=== PATIENT | female | born 1950 | race Caucasian/White ===

== ENCOUNTER 2019-08-04 08:21 | Emergency (ER) | payer MEDICARE, BC ==
[2019-08-04 08:36] VITALS: BP 156/78
--- NOTE | 2019-08-04 08:49 | UC ---
Throat Pain/Nasal Jose HPI - HPI Summary HPI Summary: 68 yo with several days of cough, with progressive sore throat for the past 2 days. Grandchildren recently dx with RSV, and one admitted for treatment of pneumonia. - History of Current Complaint Chief Complaint: UCGeneralIllness Stated Complaint: SORE THROAT EARS COUGH Time Seen by Provider: 08/04/19 08:40 Hx Obtained From: Patient Onset/Duration: Gradual Onset, Lasting Days - 4 Severity: Moderate Pain Intensity: 0 Cough: Nonproductive Associated Signs & Symptoms: Positive: Dysphagia - Epiglottits Risk Factors Epiglottis Risk Factors: Negative - Allergies/Home Medications Allergies/Adverse Reactions: Allergies Allergy/AdvReac Type Severity Reaction Status Date / Time medroxyprogesterone Allergy Nausea And Verified 08/04/19 08:36 [From Provera] Vomiting PMH/Surg Hx/FS Hx/Imm Hx Previously Healthy: Yes Endocrine History: Hypothyroidism, Dyslipidemia - Surgical History Surgical History: Yes Surgery Procedure, Year, and Place: CHOLECYSTECTOMY - Family History Known Family History: Positive: Other - mother of lymphoma, father age 94 - Social History Occupation: Retired Alcohol Use: Daily Alcohol Amount: 1 beer Substance Use Type: None Smoking Status (MU): Never Smoked Tobacco Review of Systems All Other Systems Reviewed And Are Negative: Yes Constitutional: Positive: Fatigue Skin: Positive: Negative Eyes: Positive: Negative ENT: Positive: Sore Throat, Ear Ache Respiratory: Positive: Cough Cardiovascular: Positive: Other - often has high BP in MD offices Gastrointestinal: Positive: Negative Genitourinary: Positive: Negative Motor: Positive: Negative Neurovascular: Positive: Negative Musculoskeletal: Positive: Negative Neurological/Mental Status: Positive: Negative Psychological: Positive: Negative Is Patient Immunocompromised?: No Physical Exam Triage Information Reviewed: Yes Appearance: Well-Appearing, No Pain Distress Vital Signs: Initial Vital Signs Temp 98.6 F 08/04/19 08:30 Pulse 92 08/04/19 08:30 Resp 18 08/04/19 08:30 BP 156/78 08/04/19 08:30 Pulse Ox 96 08/04/19 08:30 ENT: Positive: Pharyngeal erythema, TMs normal Neck: Positive: Supple, Nontender, No Lymphadenopathy Respiratory: Positive: Lungs clear, Normal breath sounds, No respiratory distress Cardiovascular: Positive: RRR, No Murmur Musculoskeletal Exam: Normal Neurological Exam: Normal Psychological Exam: Normal Skin Exam: Normal Diagnostics - Laboratory Lab Results: rapid strep negative. Throat Pain/Nasal Course/Dx - Course Course Of Treatment: Continue symptomatic treatment of viral illness. - Differential Dx/Diagnosis Differential Diagnosis/HQI/PQRI: Laryngitis, Pharyngitis, Tonsillitis Provider Diagnosis: Pharyngitis Discharge ED - Sign-Out/Discharge Documenting (check all that apply): Patient Departure All imaging exams completed and their final reports reviewed: No Studies - Discharge Plan Condition: Stable Disposition: HOME Patient Education Materials: Pharyngitis (ED) Referrals: Brie Bacon MD [Primary Care Provider] - Additional Instructions: Your blood pressure reading today was 158/76; please ensure that you have a follow up reading within the month. Continue symptomatic treatment with warm drinks and warm water and salt gargling. Follow up if you develop fever or have persistent cough and shortness of breath. - Billing Disposition and Condition Condition: STABLE Disposition: Home
== END 2019-08-04 09:00 | disposition home or self-care (01) ==
LOC: UCCORT 08:21
DX: J02.9 Acute pharyngitis, unspecified (principal); Z88.8 Allergy status to other drugs, medicaments and biological substances
CPT/HCPCS: 87651; 99201; G0463